=== PATIENT | male | born 1945 | race Caucasian/White ===

== ENCOUNTER 2017-05-12 15:35 | Inpatient (IN) | payer MEDICARE, BC ==
[~2017-05-12] VITALS: Ht 167.6 cm; Wt 82.6 kg
--- NOTE | 2017-05-12 15:38 | ERD ---
ER Documentation Chief Complaint Chief Complaint Chest pain HPI The patient is a 72-year-old male, presenting to the ER because of acute chest pain. He called 911 about 20 minutes prior to arrival ER. When the EMS arrived he was diaphoretic suddenly went to V. fib. He was defibrillated multiple times, total about 5 times last 20 minutes from his house to the ER due to recurrent V Fib and V Tach. He was awake, alert when he came to the ER, diaphoretic. The history is limited due to language barrier. He had similar sx 5 years ago when he had stent PCI. He smokes Past Medical history: CAD, dyslipidemia Past surgical history: Stent PCI ROS All systems reviewed and are negative except as per history of present illness. Allergies Allergies: Coded Allergies: No Known Allergy (Unverified , 05/12/17) Physical Exam Vitals Vital Signs Date Time Temp Pulse Resp B/P Pulse Ox O2 Delivery O2 Flow Rate FiO2 05/12/17 17:45 Nasal Cannula 3.0 05/12/17 15:44 Nasal Cannula 2 05/12/17 15:42 97.9 89 17 130/101 96 Physical Exam Const: No acute distress.Diaphoretic Head: Atraumatic. Eyes: Normal Conjunctiva. ENT: Normal External Ears, Nose and Mouth. Neck: Full range of motion. No meningismus. Resp: Clear to auscultation bilaterally. Cardio: Regular rate and rhythm. Abd: Soft, non distended, normal bowel sounds, non tender. Skin: No petechiae or rashes. Back: No midline or flank tenderness. Ext: No cyanosis, or edema. Neur: Awake and alert. No focal deficit Psych: Normal Mood and Affect. Result Diagram: 05/12/17 1545 05/12/17 1545 Results 24 hrs Laboratory Tests Test 05/12/17 15:45 White Blood Count 6.210^3/ul Red Blood Count 2.8510^6/ul Hemoglobin 8.6g/dl Hematocrit 26.8% Mean Corpuscular Volume 94.0fl Mean Corpuscular Hemoglobin 30.2pg Mean Corpuscular Hemoglobin Concent 32.1g/dl Red Cell Distribution Width 13.2% Platelet Count 59384^3/UL Mean Platelet Volume 10.5fl Neutrophils % 52.5% Lymphocytes % 36.4% Monocytes % 8.9% Eosinophils % 1.1% Basophils % 0.5% Nucleated Red Blood Cells % 0.0/100WBC Neutrophils # 3.310^3/ul Lymphocytes # 2.310^3/ul Monocytes # 0.610^3/ul Eosinophils # 0.110^3/ul Basophils # 0.010^3/ul Nucleated Red Blood Cells # 0.010^3/ul Prothrombin Time 17.6Sec Prothrombin Time Ratio 1.4 INR International Normalized Ratio 1.44 Activated Partial Thromboplast Time 23.0Sec Sodium Level 149mmol/L Potassium Level 2.0mmol/L Chloride Level 126mmol/L Carbon Dioxide Level 13mmol/L Anion Gap 12 Blood Urea Nitrogen 12mg/dl Creatinine 0.82mg/dl Glucose Level 100mg/dl Calcium Level 5.0mg/dl Magnesium Level 1.1mg/dl Troponin I < 0.012ng/ml Current Medications Medications (Trade) Dose Ordered Sig/Lima Route PRN Reason Start Time Stop Time Status Last Admin Dose Admin Amiodarone HCl 100 ml @ 600 mls/hr ONCE ONCE IV 05/12/17 16:00 05/12/17 16:09 DC 05/12/17 16:14 Amiodarone HCl/ Dextrose (Cordarone Iv/ D5W) 500 ml @ 0 mls/hr Q0M IV 05/12/17 16:00 05/13/17 15:59 05/12/17 16:14 Aspirin (Aspirin) 324 mg ONCE ONCE PO 05/12/17 16:00 05/12/17 16:01 DC 05/12/17 16:14 Heparin Sodium (Porcine) (Heparin (5000 Units/0.5 ml)) 5,000 unit ONCE ONCE IV 05/12/17 16:00 05/12/17 16:01 DC 05/12/17 16:14 Heparin Sodium (Porcine) (Heparin (1000 Units/ml)) 10,000 unit STK-MED ONCE .ROUTE 05/12/17 15:47 05/12/17 15:48 DC Heparin Sodium (Porcine) (Heparin (1000 Units/ml)) 10,000 unit STK-MED ONCE .ROUTE 05/12/17 16:17 05/12/17 16:18 DC Lidocaine (Xylocaine 1% (Mdv) 20 ml) 20 ml STK-MED ONCE .ROUTE 05/12/17 16:17 05/12/17 16:18 DC Iodixanol 100 ml 100 ml STK-MED ONCE .ROUTE 05/12/17 16:17 05/12/17 16:18 DC Heparin Sodium/ Sodium Chloride (Heparin 1000 Units/NS (A-Line)) 1,000 ml @ ud STK-MED ONCE .ROUTE 05/12/17 16:17 05/12/17 16:18 DC Verapamil HCl (Verapamil) 5 mg STK-MED ONCE .ROUTE 05/12/17 16:17 05/12/17 16:18 DC Nitroglycerin (Nitroglycerin (Intracoronary)) 1,000 mcg STK-MED ONCE .ROUTE 05/12/17 16:17 05/12/17 16:18 DC Fentanyl (Sublimaze) 100 mcg STK-MED ONCE .ROUTE 05/12/17 16:20 05/12/17 16:21 DC Midazolam HCl (Versed) 2 mg STK-MED ONCE .ROUTE 05/12/17 16:20 05/12/17 16:21 DC Ondansetron HCl 4 mg 4 mg STK-MED ONCE .ROUTE 05/12/17 16:25 05/12/17 16:26 DC Potassium Chloride (KCl 40 MEQ/250 ML NS) 250 ml @ 62.5 mls/hr ONCE ONCE IVPB 05/12/17 16:30 05/12/17 20:29 05/12/17 18:11 Heparin Sodium (Porcine) (Heparin (1000 Units/ml)) 10,000 unit STK-MED ONCE .ROUTE 05/12/17 16:40 05/12/17 16:41 DC Calcium Chloride 1000 mg 1,000 mg STK-MED ONCE .ROUTE 05/12/17 16:40 05/12/17 16:41 DC Potassium Chloride 100 ml @ ud STK-MED ONCE .ROUTE 05/12/17 16:40 05/12/17 16:41 DC Magnesium Sulfate (Magnesium Sulfate 2 Gm/50 ml) 50 ml @ ud STK-MED ONCE .ROUTE 05/12/17 16:40 05/12/17 16:41 DC Iodixanol (Visipaque Locm) 100 ml STK-MED ONCE .ROUTE 05/12/17 16:40 05/12/17 16:41 DC Iodixanol (Visipaque Locm) 100 ml STK-MED ONCE .ROUTE 05/12/17 16:52 05/12/17 16:53 DC Ticagrelor (Brilinta) 90 mg STK-MED ONCE .ROUTE 05/12/17 17:17 05/12/17 17:18 DC Miscellaneous Information (* Miscellaneous Pharmacy Order) Hold all Metformin ... ONCE ONCE XX 05/12/17 17:30 05/12/17 17:31 DC Lisinopril (Zestril) 10 mg DAILY PO 05/12/17 17:30 05/12/17 18:52 Acetaminophen (Tylenol Tab) 650 mg Q4H PRN PO NON-CARDIAC PAIN LEVEL 1-3 05/12/17 17:30 Oxycodone/ Acetaminophen (Percocet (5/ 325)) 1 tab Q4H PRN PO REPORTED NON-CARDIAC PAIN 4-7 05/12/17 17:30 05/12/17 18:39 Zolpidem Tartrate (Ambien) 5 mg HS MAY REPEAT X 1 PRN PO INSOMNIA 05/12/17 17:30 Al Hydrox/Mg Hydrox/Simethicone (Mag-Al Plus) 30 ml Q4H PRN PO GASTROINTESTINAL UPSET 05/12/17 17:30 Ondansetron HCl (Zofran Inj) 4 mg Q4H PRN IV NAUSEA AND/OR VOMITING 05/12/17 17:30 Procedures/MDM All Labs and chest x-ray are pending EKG: Read by emergency physician Rate/Rhythm: Normal Sinus Rhythm 89 beats/min QRS, ST, T-waves: No PVC, ST elevation anteriorly, acute anterior NV Impression: Abnormal EKG MEDICAL MAKING DECISION: Upon arrival to the ER, I reviewed the ER EKG. code STEMI was immediately activated. He was treated with amiodarone 150 mg IV bolus then added on amiodarone drip 1 mg/min due to recent V. fib and V. tach, ASA 325 mg po and Heparin 5,000 unit IV for acute STEMI. The differential diagnoses considered include but are not limited to acute coronary syndrome, acute myocardial infarction, pericarditis, pulmonary embolism , aortic dissection, pneumonia, pleural effusion, pneumothorax, GERD, chest wall pain. I did inform Dr Lyons of low potassium while the pt was in the [facility] Floor [employer] Consultation: I discussed the patient with the on-call patient appointment coordinator Dr. Lyons at 3:40 am, has made aware of the patient condition and the pending labs and chest x-ray. She would come to the ER immediately to take the patient to cardiac Hardwood Floor Installer for emergent intervention Critical Care: Time: 35 minutes excluding all billable procedures. Treatments/Evaluations: Close monitoring and treatment of unstable vital signs, cardiorespiratory, and neurologic status, while maintaining tight balance of fluid, respiratory, and cardiac interventions. Departure Diagnosis: Primary Impression: STEMI (ST elevation myocardial infarction) Condition: Critical Comments I discussed the findings with the patient. I discussed the patient with the on- call hospitalist Dr. Canada who was made aware of the lab, the treatment, the patient condition. The patient is admitted to ICU after Cath at 4:25 pm Disclaimer: Inadvertent spelling and grammatical errors are likely due to EHR/ dictation software use and do not reflect on the overall quality of patient care. Also, please note that the electronic time recorded on this note does not necessarily reflect the actual time of the patient encounter. JUDY STROUD MD May 12, 2017 15:38
[2017-05-12] MEDS ORDERED: HEPARIN 1000 UNITS/ML 10 ML INJ ONE ×3 (15:47→16:40)
[2017-05-12 15:52] LABS: BASOPHILS % 0.5 % (0.0-2.0); EOSINOPHILS # 0.1 10^3/ul (0.0-0.5); EOSINOPHILS % 1.1 % (0.0-7.0); HEMATOCRIT 26.8 % (42.0-52.0); HEMOGLOBIN 8.6 g/dl (14.0-18.0); LYMPHOCYTES # 2.3 10^3/ul (0.8-2.9); LYMPHOCYTES % 36.4 % (15.0-51.0); MEAN CORPUSCULAR HEMOGLOBIN 30.2 pg (29.0-33.0); MEAN CORPUSCULAR HGB CONC 32.1 g/dl (32.0-37.0); MEAN PLATELET VOLUME 10.5 fl (7.4-10.4); MONOCYTE # 0.6 10^3/ul (0.3-0.9); MONOCYTES % 8.9 % (0.0-11.0); NEUTROPHIL # 3.3 10^3/ul (1.6-7.5); NEUTROPHILS % 52.5 % (39.0-77.0); PLATELET COUNT 182 10^3/UL (140-415); RED BLOOD COUNT 2.85 10^6/ul (4.70-6.10); RED CELL DISTRIBUTION WIDTH 13.2 % (11.5-14.5); WHITE BLOOD COUNT 6.2 10^3/ul (4.8-10.8)
[2017-05-12] MEDS ORDERED: AMIODARONE 150MG/D5W BOLUS 100 ML IV ONE (16:00)
[2017-05-12] MEDS ORDERED: HEPARIN 5,000 UNIT/0.5 ML VIAL IV ONE (16:00)
[2017-05-12] MEDS ORDERED: ASPIRIN 81 MG TAB PO ONE (16:00)
[2017-05-12] MEDS ORDERED: AMIODARONE 900 MG in DEXTROSE 5% 482 ML IV SCH (16:00)
[2017-05-12 16:14] LABS: INR 1.44; PROTIME 17.6 Sec (12.2-14.2); PT RATIO 1.4
[2017-05-12 16:17] LABS: ANION GAP 12 (8-16); BLOOD UREA NITROGEN 12 mg/dl (7-20); CARBON DIOXIDE 13 mmol/L (21-31); CREATININE 0.82 mg/dl (0.61-1.24); GLUCOSE 100 mg/dl (70-220); MAGNESIUM 1.1 mg/dl (1.7-2.5); SODIUM 149 mmol/L (135-144)
[2017-05-12] MEDS ORDERED: LIDOCAINE 1% (MDV) 20 ML INJ ONE (16:17)
[2017-05-12] MEDS ORDERED: VERAPAMIL 5 MG INJ ONE (16:17)
[2017-05-12] MEDS ORDERED: HEPARIN 1000 UNITS/NS (A-LINE) 1,000 ML ONE (16:17)
[2017-05-12] MEDS ORDERED: IODIXANOL LOCM 100 ML BTL ONE ×3 (16:17→16:52)
[2017-05-12] MEDS ORDERED: NITROGLYCERIN (IC) 100 MCG/ML INJ ONE (16:17)
--- NOTE | 2017-05-12 16:18 | RADRPT ---
PROCEDURE: XR Chest. CLINICAL INDICATION: Chest pain TECHNIQUE: Single frontal view of the chest was obtained COMPARISON: None FINDINGS: The heart is enlarged. The thoracic aorta is calcified. There are mild right lower lobe atelectatic changes. The lungs are otherwise clear. There is no pleural effusion or pneumothorax. RPTAT: AA IMPRESSION: Mild cardiomegaly. Calcified aorta consistent with atherosclerotic disease. Mild right lower lobe atelectatic changes. .Calin Guadarrama MD, MD Date Time Electronically viewed and signed by .Calin Guadarrama MD, on 05/12/2017 16:18 .S/
[2017-05-12] MEDS ORDERED: FENTAnyl 50 MCG/ML VIAL ONE (16:20)
[2017-05-12] MEDS ORDERED: MIDAZOLAM 1 MG/ML 2 ML INJ ONE (16:20)
[2017-05-12 16:23] LABS: CHLORIDE 126 mmol/L (97-110)
[2017-05-12] MEDS ORDERED: ONDANSETRON 4 MG INJ ONE (16:25)
[2017-05-12] MEDS ORDERED: POTASSIUM CHLORIDE 250 ML IVPB ONE (16:30)
[2017-05-12 16:31] LABS: TROPONIN-I < 0.012 ng/ml (0.00-0.12)
[2017-05-12] MEDS ORDERED: CA CHLORIDE 10% 10 ML SYRINGE ONE (16:40)
[2017-05-12] MEDS ORDERED: POTASSIUM CHLORIDE 100 ML ONE (16:40)
[2017-05-12] MEDS ORDERED: MAGNESIUM SULFATE 2 GM/50 ML 50 ML ONE (16:40)
[2017-05-12] MEDS ORDERED: TICAGRELOR 90 MG TABLET ONE (17:17)
[2017-05-12] MEDS ORDERED: ACETAMINOPHEN 325 MG TAB PO PRN (17:30)
[2017-05-12] MEDS ORDERED: AL HYDROX/MG HYDROX/SIMETH 30 ML CUP PO PRN (17:30)
[2017-05-12] MEDS ORDERED: OXYCODONE/ACETAMINOPHEN (5/325) TAB PO PRN (17:30)
[2017-05-12] MEDS ORDERED: ONDANSETRON 4 MG INJ IV PRN ×2 (17:30→18:30)
[2017-05-12] MEDS ORDERED: ZOLPIDEM 5 MG TAB PO PRN (17:30)
--- NOTE | 2017-05-12 17:38 | CONS ---
Date/Time of Note Date/Time of Note DATE: 05/12/17 TIME: 17:29 Assessment/Plan Assessment/Plan Chief Complaint/Hosp Course 72 yo with anterior wall STEMI, underwent PCI with JAC to the prox LAD Problems: Additional Assessment/Plan STEMI anterior wall Hypokalemia and hypocalcemia tobacco abuse ischemic cardiomyopathy Recc: Asa/Brilinta/Atorvastatin/metoprolol/lisinopril Repletion of electrolytes Tob cessation urged Echo in AM Case d/w Dr. Enriquez who is with patient's primary bag machine operator's group, and will assume care tomorrow. Consultation Date/Type/Reason Admit Date/Time Date of Consultation: May 12, 2017 Reason for Consultation STEMI Referring Provider: JUDY STROUD MD Hx of Present Illness 72 yo with h/o cad anterior stemi 2011 with jac to mid lad, presents with chest pain that started a few hours prior to arrival. Pt had VT requiring shock by EMS x5. Patient started on amiodarone. EKG demonstrates peaked Ts and ST elevation in anterior leads with reciprocal depression and patient taken emergently to the boat laborer, where he underwent PCI of severe proximal LAD lesion. LVEF about 35-40% on LV gram. Subjective hx not possible: pt critical Past Medical History Medical History: angina, coronary artery disease Past Surgical History Past Surgical Hx: angioplasty Family History Significant Family History: no pertinent family hx Social History Smoking Status: Current every day smoker Exam/Review of Systems Vital Signs Vitals Vital Signs Date Time Temp Pulse Resp B/P Pulse Ox O2 Delivery O2 Flow Rate FiO2 05/12/17 15:44 Nasal Cannula 2 05/12/17 15:42 97.9 89 17 130/101 96 Exam Constitutional: alert, oriented, well developed Psych: nl mood/affect, no complaints Head: atraumatic, normocephalic Eyes: EOMI, PERRL, nl conjunctiva, nl lids, nl sclera ENMT: nl external ears & nose, nl lips & teeth, nl nasal mucosa & septum Neck: No bruits, No jvd Respiratory: clear to auscultation, normal air movement Cardiovascular: nl pulses, regular rate and rhythm Gastrointestinal: nl liver, spleen, soft Musculoskeletal: nl extremities to inspection Extremities: normal pulses Neurological: nl mental status, nl speech Skin: nl turgor, No rash or lesions Results Result Diagram: 05/12/17 1545 05/12/17 1545 Results 24 hrs Laboratory Tests Test 05/12/17 15:45 White Blood Count 6.2 Red Blood Count 2.85 L Hemoglobin 8.6 L Hematocrit 26.8 L Mean Corpuscular Volume 94.0 Mean Corpuscular Hemoglobin 30.2 Mean Corpuscular Hemoglobin Concent 32.1 Red Cell Distribution Width 13.2 Platelet Count 182 Mean Platelet Volume 10.5 H Neutrophils % 52.5 Lymphocytes % 36.4 Monocytes % 8.9 Eosinophils % 1.1 Basophils % 0.5 Nucleated Red Blood Cells % 0.0 Neutrophils # 3.3 Lymphocytes # 2.3 Monocytes # 0.6 Eosinophils # 0.1 Basophils # 0.0 Nucleated Red Blood Cells # 0.0 Prothrombin Time 17.6 H Prothrombin Time Ratio 1.4 INR International Normalized Ratio 1.44 Activated Partial Thromboplast Time 23.0 L Sodium Level 149 H Potassium Level 2.0 *L Chloride Level 126 H Carbon Dioxide Level 13 L Anion Gap 12 Blood Urea Nitrogen 12 Creatinine 0.82 Glucose Level 100 Calcium Level 5.0 *L Magnesium Level 1.1 L Troponin I < 0.012 Medications Medications Current Medications Amiodarone HCl 900 mg/Dextrose 500 ml @ 0 mls/hr Q0M IV Last administered on t 16:14; Admin Dose 1 MLS/HR; Start 05/12/17 at 16:00; Stop 05/13/17 at 15:59 Potassium Chloride (KCl 40 MEQ/250 ML NS) 250 ml @ 62.5 mls/hr ONCE ONCE IVPB ; Start 05/12/17 at 16:30; Stop 05/12/17 at 20:29 ISAIAH DUMAS May 12, 2017 17:38
--- NOTE | 2017-05-12 17:53 | OPR ---
Date/Time of Note Date/Time of Note DATE: 05/12/17 TIME: 17:39 Operative Report Procedure Date: May 12, 2017 Preoperative Diagnosis STEMI anterior wall Postoperative Diagnosis STEMI anterior wall, ischemic cardiomyopathy Operation/Procedure Performed coronary angiogram, left ventriculography, percutaneous coronary intervention of the proximal LAD Surgeon see signature line Weaving Instructor na Anesthesia Type: moderate sedation Estimated Blood Loss: 100 - 150 ml's Transfusion none Specimen none Grafts/Implants Synergy 3.5x12 mm stent to the prox LAD Tubes/Drains none Complications none Pt Condition Post Procedure: stable Disposition: other (icu) Indications STEMI and VT in the field Procedure Description Procedure described to the patient, including risks and benefits. He agreed to proceed. Pt received versed and fentanyl for sedation. He received asa and 5000 mg iv heparin prior to the procedure. Radial access obtained using modified seldinger technique with lidocaine for local anesthesia. Patient received verapamil and ntg through the sheath. A [place] catheter was advanced to the asc thoracic aorta. Images of the RCA and LM/LAD/LCX obtained under fluoroscopy w injection of contrast. LAD was felt to be the culprit lesion. Pt received an additional 2000 u heparin , ACT checked and found to be adequate. [place] catheter replaced with a FL3.5 guide. A Luge wire was advanced past the lesion, predilated with a 2.0x12 mm ballon, stented with a 3.5x12 mm Synergy stent, and then postdilated with a 3.75x8 mm balloon up to 20 rose. There was concern that OM2 was also a culprit, a wire was passed into the vessel but could not fully advance, suggestive of a HAIRSPRING II INSPECTOR of this vessel. Pigtail catheter advanced to the LV and pressures measured and injection done. Findings: LM normal LAD 95% proximal hazy lesion, med 2 flow distal to lesion, post procedure stenosis 0%, vessel diffusely diseased LCX small vessel, OM2 chronically occluded RCA large dominant diffusely diseased LV EF 35-40% with global hypokinesis ISAIAH DUMAS May 12, 2017 17:53
[2017-05-12 18:00] VITALS: BP 163/89; PULSE 74; RESP 15
[2017-05-12] MEDS ORDERED: POTASSIUM CHLORIDE (SR) 20 MEQ TAB PO STA (18:04)
[2017-05-12 18:09] VITALS: Ht 167.6 cm; Wt 82.6 kg
--- NOTE | 2017-05-12 18:15 | HP ---
Date/Time of Note Date/Time of Note DATE: 05/12/17 TIME: 18:15 Assessment/Plan VTE Prophylaxis VTE Prophylaxis Intervention: heparin Lines/Catheters IV Catheter Type (from Nrsg): Saline Lock Assessment/Plan Assessment/Plan 1. Acute STEMI s/p PCI to proximal LAD - Cardiology on board and recommendations appreciated - ECHO ordered - Nitro and Morphine for chest pain - continue trending troponins - Lipid panel ordered 2. c/o CAD with PCI in 2011 - continue current medications 3. Electrolyte abnormalities - Will replace but if no initial improvement, will consult Nephrology for further assistances 4. Anemia - Iron studies ordered - FOBT to rule out GI bleed 7. Hypocalcemia - will order ionized Ca and PTH - Hypomagnesemia most likely contributing to low Ca levels 8. DVT ppx - SCDs 9. GI ppx - PPI 10. Diet - Cardiac 11. Code status - Full Code 12. Disposition - Admit to ICU for close monitoring HPI/ROS Admit Date/Time Admit Date/Time 05/12/17 Hx of Present Illness 72 yo M with PMH ND in 2011 presented to ED after complaining of chest pain and shortness of breath that occurred hours prior to arrival. EMS found him in VTach and shocked him five times back into normal rhythm. Patient remembers event and denies any LOC. Patient was started on amiodarone. EKG performed showed peaked T waves and ST elevation in anterior leads. Patient was emergently taken to clinical lab specialist and PCI was performed. Stent placed in proximal LAD secondary to severe lesion. LV gram showed LVEF of 35-40%. Patient currently in ICU and complaining of moderate chest pain with shortness of breath but states is significantly better since arrival. Admits to dizziness but denies any LOC, nausea, vomiting, abdominal issues, constipation or diarrhea. Patient states he was last seen by his Lithographic Photographer Apprentice 4 months ago and was told everything was okay. ROS All 12 systems reviewed and pertinent positives as per HPI. All other negative Constitutional: No diaphoresis, No disoriented, No nausea Eyes: no complaints ENT: no complaints, No congestion, No discharge Respiratory: shortness of breath, No cough, No wheezing Cardiovascular: chest pain, No edema, No lightheadedness, No palpitations Gastrointestinal: No constipation, No nausea, No pain, No vomiting Genitourinary: no complaints Musculoskeletal: no complaints Skin: no complaints, No laceration, No rash Neurologic: no complaints Endocrine: no complaints Lymphatic: no complaints Psychological: nl mood/affect, no complaints Immunologic: no complaints PMH/Family/Social Past Medical History Medical History: angina, coronary artery disease Past Surgical History Past Surgical Hx: angioplasty Family History Significant Family History: no pertinent family hx Social History Alcohol Use: none Smoking Status: Current every day smoker Drug Use: none Exam/Review of Systems Vital Signs Vitals Vital Signs Date Time Temp Pulse Resp B/P Pulse Ox O2 Delivery O2 Flow Rate FiO2 05/12/17 15:44 Nasal Cannula 2 05/12/17 15:42 97.9 89 17 130/101 96 Exam Constitutional: alert, oriented, No distress Psych: nl mood/affect Head: atraumatic, normocephalic Eyes: EOMI, PERRL ENMT: mucosa pink and moist Neck: non-tender, supple Respiratory: clear to auscultation, No crackles/rales, No diminished breath sounds, No wheezing Cardiovascular: nl pulses, regular rate and rhythm, No edema, No systolic murmur Gastrointestinal: non-tender, soft, No distended, No rebound or guarding Musculoskeletal: nl extremities to inspection Extremities: normal pulses, other (band in place right wrist) Neurological: AWS ARCHITECT II-XII intact, nl mental status, nl speech Skin: nl turgor Lymph: nl lymph nodes Labs Result Diagram: 05/12/17 1545 05/12/17 1545 Medications Medications Home medications reviewed Current Medications Amiodarone HCl 900 mg/Dextrose 500 ml @ 0 mls/hr Q0M IV Last administered on t 16:14; Admin Dose 1 MLS/HR; Start 05/12/17 at 16:00; Stop 05/13/17 at 15:59 Potassium Chloride (KCl 40 MEQ/250 ML NS) 250 ml @ 62.5 mls/hr ONCE ONCE IVPB ; Start 05/12/17 at 16:30; Stop 05/12/17 at 20:29 Aspirin (Halfprin) 81 mg DAILY PO ; Start 05/13/17 at 09:00 Ticagrelor (Brilinta) 90 mg BID PO ; Start 05/12/17 at 21:00 Metoprolol Tartrate (Lopressor) 25 mg BID PO ; Start 05/12/17 at 21:00 Lisinopril (Zestril) 10 mg DAILY PO ; Start 05/12/17 at 17:30 Acetaminophen (Tylenol Tab) 650 mg Q4H PRN PO NON-CARDIAC PAIN LEVEL 1-3; Start 05/12/17 at 17:30 Oxycodone/ Acetaminophen (Percocet (5/ 325)) 1 tab Q4H PRN PO REPORTED NON- CARDIAC PAIN 4-7; Start 05/12/17 at 17:30 Al Hydrox/Mg Hydrox/Simethicone (Mag-Al Plus) 30 ml Q4H PRN PO GASTROINTESTINAL UPSET; Start 05/12/17 at 17:30 Ondansetron HCl (Zofran Inj) 4 mg Q4H PRN IV NAUSEA AND/OR VOMITING; Start at 17:30 Atorvastatin Calcium (Lipitor) 80 mg DAILY@21 PO ; Start 05/12/17 at 21:00 Procedures Procedures PROCEDURE: XR Chest. CLINICAL INDICATION: Chest pain TECHNIQUE: Single frontal view of the chest was obtained COMPARISON: None FINDINGS: The heart is enlarged. The thoracic aorta is calcified. There are mild right lower lobe atelectatic changes. The lungs are otherwise clear. There is no pleural effusion or pneumothorax. RPTAT: AA IMPRESSION: Mild cardiomegaly. Calcified aorta consistent with atherosclerotic disease. Mild right lower lobe atelectatic changes. JAGRUTI ZAMAN MD May 12, 2017 18:15
[2017-05-12] MEDS ORDERED: DOCUSATE SODIUM 100 MG CAP PO PRN (18:30)
[2017-05-12] MEDS: POTASSIUM CHLORIDE 250 ML IVPB SCH ×2 (18:30→22:05)
[2017-05-12] MEDS ORDERED: ACETAMINOPHEN 650MG/20.3ML CUP PO PRN (18:30)
[2017-05-12] MEDS ORDERED: morphine 2 MG INJ IV PRN (18:30)
[2017-05-12] MEDS ORDERED: MAGNESIUM HYDROXIDE 30ML CUP PO PRN (18:30)
[2017-05-12] MEDS ORDERED: MAGNESIUM SULFATE 6 GM in DEXTROSE 5% 100 ML IVPB ONE (18:30)
[2017-05-12] MEDS ORDERED: POTASSIUM CHLORIDE 50 ML IVPB PRN (18:30)
[2017-05-12] MEDS ORDERED: NITROGLYCERIN (SL) 0.4 MG TAB SL PRN (18:30)
[2017-05-12] MEDS: LISINOPRIL 10 MG TAB PO SCH (18:52)
[2017-05-12 19:00] VITALS: BP 156/85; PULSE 65; RESP 21
[2017-05-12] MEDS ORDERED: CALCIUM CARBONATE 500 MG CHEW TAB PO ONE (19:00)
[2017-05-12 20:00] VITALS: BP 148/80; PULSE 64; RESP 21
[2017-05-12 20:06] LABS: IRON 100 ug/dl (35-150)
[2017-05-12 20:16] LABS: TOTAL IRON BINDING CAPACITY 456 ug/dl (241-421)
[2017-05-12] MEDS: METOPROLOL 25 MG TAB PO SCH (20:35)
[2017-05-12] MEDS: ATORVASTATIN 80 MG TAB PO SCH (20:35)
[2017-05-12] MEDS: TICAGRELOR 90 MG TABLET PO SCH (20:36)
[2017-05-12 21:00] VITALS: BP 156/92; PULSE 72; RESP 23
[2017-05-12 22:00] VITALS: BP 137/73; PULSE 63; RESP 22
[2017-05-12] MEDS ORDERED: HEPARIN 5,000 UNIT/0.5 ML VIAL SC SCH (22:00)
[2017-05-12 22:39] LABS: TROPONIN-I 4.45 ng/ml (0.00-0.12)
[2017-05-12 23:00] VITALS: BP 136/72; PULSE 67; RESP 20
[2017-05-13] VITALS (23 sets, daily range): BP systolic 118–150; BP diastolic 55–75; PULSE 56–76; RESP 11–26
[2017-05-13 05:54] LABS: BASOPHILS % 0.3 % (0.0-2.0); EOSINOPHILS # 0.1 10^3/ul (0.0-0.5); EOSINOPHILS % 0.4 % (0.0-7.0); HEMATOCRIT 39.7 % (42.0-52.0); HEMOGLOBIN 12.7 g/dl (14.0-18.0); LYMPHOCYTES # 1.7 10^3/ul (0.8-2.9); LYMPHOCYTES % 12.6 % (15.0-51.0); MEAN CORPUSCULAR VOLUME 93.6 fl (82.0-101.0); MEAN PLATELET VOLUME 11.1 fl (7.4-10.4); MONOCYTE # 1.1 10^3/ul (0.3-0.9); MONOCYTES % 7.9 % (0.0-11.0); NEUTROPHIL # 10.9 10^3/ul (1.6-7.5); NEUTROPHILS % 78.4 % (39.0-77.0); PLATELET COUNT 266 10^3/UL (140-415); RED BLOOD COUNT 4.24 10^6/ul (4.70-6.10); RED CELL DISTRIBUTION WIDTH 13.5 % (11.5-14.5); WHITE BLOOD COUNT 13.9 10^3/ul (4.8-10.8)
[2017-05-13] MEDS: PANTOPRAZOLE (EC) 40 MG TAB PO SCH (06:08)
[2017-05-13 06:32] LABS: ALBUMIN 3.6 g/dl (3.3-4.9); CALCIUM 9.4 mg/dl (8.4-10.2); CREATININE 1.23 mg/dl (0.61-1.24); MAGNESIUM 2.4 mg/dl (1.7-2.5); PHOSPHORUS 3.4 mg/dl (2.5-4.9); POTASSIUM 4.6 mmol/L (3.5-5.1)
[2017-05-13 06:36] LABS: CK-MB 89.3 ng/ml (0.0-2.4); TROPONIN-I 13.8 ng/ml (0.00-0.12)
[2017-05-13 07:47] LABS: CHOL/HDL RATIO 3.1 RATIO
[2017-05-13] MEDS: LISINOPRIL 10 MG TAB PO SCH (08:09)
[2017-05-13] MEDS: ASPIRIN (EC) 81 MG TAB PO SCH (08:09)
[2017-05-13] MEDS: METOPROLOL 25 MG TAB PO SCH ×3 (08:10→20:45)
[2017-05-13] MEDS: TICAGRELOR 90 MG TABLET PO SCH ×2 (08:11→20:43)
--- NOTE | 2017-05-13 08:46 | CONS ---
Date/Time of Note Date/Time of Note DATE: 05/13/17 TIME: 08:42 Assessment/Plan Assessment/Plan Chief Complaint/Hosp Course 1) acute anterior wall STEMI s/p PCI of proximal LAD with PRAFUL x 1 2) Ischemic cardiomyopathy- check echo for LV function, will need close outpt f/ u 3) Smoking- d/w pt, recommend smoking cessation 4) Hypokalemia- unclear etiology- replaced, watch k/mag closely 5) ischemic VT- s/p shock x 5 by EMS per report. cont tele monitoring and electrolyte supplementation. given AMI, would not recommend ICD at this time. however, will need to check lvef Recc: cont asa 81 mg daily cont ticagelor 90mg po bid cont atorvastatin cont bb/lisinopril Repletion of electrolytes Tob cessation urged Echo pending ok to transfer to tele floor, cont montioring for 24 hrs, if stable consider d/ c tomorrow Problems: Consultation Date/Type/Reason Admit Date/Time 05/12/17 Eyes: no complaints ENT: no complaints Respiratory: shortness of breath Cardiovascular: chest pain Gastrointestinal: No constipation, No nausea, No pain, No vomiting Genitourinary: no complaints Musculoskeletal: no complaints Skin: no complaints Neurologic: no complaints Lymphatic: no complaints Psychological: nl mood/affect Immunologic: no complaints Past Medical History Medical History: angina, coronary artery disease Past Surgical History Past Surgical Hx: angioplasty Social History Alcohol Use: none Smoking Status: Former smoker Drug Use: none Exam/Review of Systems Vital Signs Vitals Vital Signs Date Time Temp Pulse Resp B/P Pulse Ox O2 Delivery O2 Flow Rate FiO2 05/13/17 07:20 98.0 24 130/58 94 Room Air 05/13/17 07:00 61 05/13/17 04:00 3.0 Intake and Output 05/12/17 05/12/17 05/13/17 15:00 23:00 07:00 Intake Total 532.5 ml 50 ml Output Total 30 ml 800 ml Balance 502.5 ml -750 ml Results Result Diagram: 05/13/17 0451 05/13/17 0452 Results 24 hrs Laboratory Tests Test 05/12/17 15:45 05/12/17 19:28 05/12/17 21:42 05/13/17 04:51 White Blood Count 6.2 13.9 #H Red Blood Count 2.85 L 4.24 #L Hemoglobin 8.6 L 12.7 #L Hematocrit 26.8 L 39.7 #L Mean Corpuscular Volume 94.0 93.6 Mean Corpuscular Hemoglobin 30.2 30.0 Mean Corpuscular Hemoglobin Concent 32.1 32.0 Red Cell Distribution Width 13.2 13.5 Platelet Count 182 266 # Mean Platelet Volume 10.5 H 11.1 H Neutrophils % 52.5 78.4 H Lymphocytes % 36.4 12.6 L Monocytes % 8.9 7.9 Eosinophils % 1.1 0.4 Basophils % 0.5 0.3 Nucleated Red Blood Cells % 0.0 0.0 Neutrophils # 3.3 10.9 H Lymphocytes # 2.3 1.7 Monocytes # 0.6 1.1 H Eosinophils # 0.1 0.1 Basophils # 0.0 0.0 Nucleated Red Blood Cells # 0.0 0.0 Prothrombin Time 17.6 H Prothrombin Time Ratio 1.4 INR International Normalized Ratio 1.44 Activated Partial Thromboplast Time 23.0 L Sodium Level 149 H Potassium Level 2.0 *L Chloride Level 126 H Carbon Dioxide Level 13 L Anion Gap 12 Blood Urea Nitrogen 12 Creatinine 0.82 Glucose Level 100 Calcium Level 5.0 *L Magnesium Level 1.1 L Troponin I < 0.012 4.450 *H 13.800 *H Ionized Calcium (Measured) 1.3 Iron Level 100 Total Iron Binding Capacity 456 H Percent Iron Saturation 22 Vitamin D 1,25-Dihydroxy 62.0 Creatine Kinase 1348 H 6152 #H Creatine Kinase Index 3.4 1.5 Creatinine Kinase MB (Mass) 46.00 H 89.30 H Triglycerides Level 102 Cholesterol Level 129 LDL Cholesterol, Calculated 68 HDL Cholesterol 41 Cholesterol/HDL Ratio 3.1 Test 05/13/17 04:52 Sodium Level 141 Potassium Level 4.6 # Chloride Level 108 # Carbon Dioxide Level 26 # Anion Gap 12 Blood Urea Nitrogen 21 H Creatinine 1.23 Glucose Level 101 Calcium Level 9.4 # Phosphorus Level 3.4 Magnesium Level 2.4 # Albumin 3.6 Medications Medications Current Medications Aspirin (Halfprin) 81 mg DAILY PO Last administered on 05/13/17 08:09; Admin Dose 81 MG; Start 05/13/17 at 09:00 Ticagrelor (Brilinta) 90 mg BID PO Last administered on 05/13/17 08:11; Admin Dose 90 MG; Start 05/12/17 at 21:00 Metoprolol Tartrate (Lopressor) 25 mg BID PO Last administered on 05/12/17 20 :35; Admin Dose 25 MG; Start 05/12/17 at 21:00 Lisinopril (Zestril) 10 mg DAILY PO Last administered on 05/13/17 08:09; Admin Dose 10 MG; Start 05/12/17 at 17:30 Acetaminophen (Tylenol Tab) 650 mg Q4H PRN PO NON-CARDIAC PAIN LEVEL 1-3 Last administered on 05/12/17 20:42; Admin Dose 650 MG; Start 05/12/17 at 17:30 Oxycodone/ Acetaminophen (Percocet (5/ 325)) 1 tab Q4H PRN PO REPORTED NON- CARDIAC PAIN 4-7 Last administered on 05/12/17 18:39; Admin Dose 1 TAB; Start 05/12/17 at 17:30 Al Hydrox/Mg Hydrox/Simethicone (Mag-Al Plus) 30 ml Q4H PRN PO GASTROINTESTINAL UPSET Last administered on 05/12/17 20:58; Admin Dose 30 ML; Start 05/12/17 at 17:30 Ondansetron HCl (Zofran Inj) 4 mg Q4H PRN IV NAUSEA AND/OR VOMITING Last administered on 05/12/17 22:15; Admin Dose 4 MG; Start 05/12/17 at 17:30 Atorvastatin Calcium (Lipitor) 80 mg DAILY@21 PO Last administered on 20:35; Admin Dose 80 MG; Start 05/12/17 at 21:00 Ondansetron HCl (Zofran Inj) 4 mg Q6H PRN IV NAUSEA AND/OR VOMITING; Start at 18:30 Nitroglycerin (Nitroglycerin (Sl Tab) 0.4 Mg) 1 tab Q5M PRN SL CHEST PAIN; Start 05/12/17 at 18:30 Acetaminophen (Tylenol Liquid) 650 mg Q6H PRN PO PAIN LEVEL 1-3 OR FEVER; Start 05/12/17 at 18:30 Morphine Sulfate (morphine) 2 mg Q4H PRN IV PAIN LEVEL 7-10; Start 05/12/17 at 18:30 Docusate Sodium (Colace) 100 mg Q12H PRN PO CONSTIPATION; Start 05/12/17 at 18 :30 Magnesium Hydroxide (Milk Of Mag) 30 ml DAILY PRN PO CONSTIPATION; Start 05/12 at 18:30 Pantoprazole (Protonix Tab) 40 mg DAILY@06 PO Last administered on 05/13/17t 06:08; Admin Dose 40 MG; Start 05/13/17 at 06:00 MARISSA YI May 13, 2017 08:46
--- NOTE | 2017-05-13 11:23 | PN ---
Date/Time of Note Date/Time of Note DATE: 05/13/17 TIME: 11:23 Assessment/Plan VTE Prophylaxis VTE Prophylaxis Intervention: heparin Lines/Catheters IV C[facility] Type [facility]from [facility] Saline Lock Urinary Cath still in place: No Assessment/Plan Assessment/Plan 1. Acute anterior wall STEMI s/p PCI of proximal LAD with PRAFUL x 1 - Cardiology on board and recommendations appreciated. - Repeat ECHO - Nitro and Morphine for chest pain - continue trending troponins - Lipid panel within normal limits 2. c/o CAD with PCI in 2011 - continue current medications 3. Electrolyte abnormalities- improved - will continue monitoring and replace as needed 4. Anemia- improving - Hgb improved to 12 - Iron studies within normal limits 5. Ischemic Vtach - Had 15 beats today but no ICD needed at this time 6. Disposition - Can downgrade to Telemetry >30 minutes of critical care time was spend with patient and at bedside. Subjective 24 Hr Interval Summary Free Text/Dictation Patient states he's feeling better but still has some discomfort at the sites where he was shocked. Patient denies any further chest pain or shortness of breath. Patient had a run of 15 beats of Vtach as well. No acute overnight events. Exam/Review of Systems Vital Signs Vitals Vital Signs Date Time Temp Pulse Resp B/P Pulse Ox O2 Delivery O2 Flow Rate FiO2 05/13/17 10:00 98.3 66 22 133/68 99 Nasal Cannula 05/13/17 04:00 3.0 Intake and Output 05/12/17 05/12/17 05/13/17 14:59 22:59 06:59 Intake Total 445.0 ml 137.5 ml Output Total 30 ml 800 ml Balance 415.0 ml -662.5 ml Exam General- resting comfortably in bed, no acute distress, awake and alert HEENT- EOM intact, PERRL CVS- S1, S2, RRR. no murmurs Lungs- CTA b/l. no wheezing, crackles GI- soft, NT, ND, +BS, no rebound or guarding Ext- no edema, cyanosis, or clubbing Skin- no rashes, ecchymosis Neuro- no focal deficits Results Result Diagram: 05/13/17 0451 05/13/17 0452 Results 24 hrs Laboratory Tests Test 05/12/17 15:45 05/12/17 19:28 05/12/17 21:42 05/13/17 04:51 White Blood Count 6.2 13.9 #H Red Blood Count 2.85 L 4.24 #L Hemoglobin 8.6 L 12.7 #L Hematocrit 26.8 L 39.7 #L Mean Corpuscular Volume 94.0 93.6 Mean Corpuscular Hemoglobin 30.2 30.0 Mean Corpuscular Hemoglobin Concent 32.1 32.0 Red Cell Distribution Width 13.2 13.5 Platelet Count 182 266 # Mean Platelet Volume 10.5 H 11.1 H Neutrophils % 52.5 78.4 H Lymphocytes % 36.4 12.6 L Monocytes % 8.9 7.9 Eosinophils % 1.1 0.4 Basophils % 0.5 0.3 Nucleated Red Blood Cells % 0.0 0.0 Neutrophils # 3.3 10.9 H Lymphocytes # 2.3 1.7 Monocytes # 0.6 1.1 H Eosinophils # 0.1 0.1 Basophils # 0.0 0.0 Nucleated Red Blood Cells # 0.0 0.0 Prothrombin Time 17.6 H Prothrombin Time Ratio 1.4 INR International Normalized Ratio 1.44 Activated Partial Thromboplast Time 23.0 L Sodium Level 149 H Potassium Level 2.0 *L Chloride Level 126 H Carbon Dioxide Level 13 L Anion Gap 12 Blood Urea Nitrogen 12 Creatinine 0.82 Glucose Level 100 Calcium Level 5.0 *L Magnesium Level 1.1 L Troponin I < 0.012 4.450 *H 13.800 *H Ionized Calcium (Measured) 1.3 Iron Level 100 Total Iron Binding Capacity 456 H Percent Iron Saturation 22 Vitamin D 1,25-Dihydroxy 62.0 Creatine Kinase 1348 H 6152 #H Creatine Kinase Index 3.4 1.5 Creatinine Kinase MB (Mass) 46.00 H 89.30 H Triglycerides Level 102 Cholesterol Level 129 LDL Cholesterol, Calculated 68 HDL Cholesterol 41 Cholesterol/HDL Ratio 3.1 Test 05/13/17 04:52 Sodium Level 141 Potassium Level 4.6 # Chloride Level 108 # Carbon Dioxide Level 26 # Anion Gap 12 Blood Urea Nitrogen 21 H Creatinine 1.23 Glucose Level 101 Calcium Level 9.4 # Phosphorus Level 3.4 Magnesium Level 2.4 # Albumin 3.6 Medications Medications Current Medications Aspirin (Halfprin) 81 mg DAILY PO Last administered on 05/13/17t 08:09; Admin Dose 81 MG; Start 05/13/17 at 09:00 Ticagrelor (Brilinta) 90 mg BID PO Last administered on 05/13/17 08:11; Admin Dose 90 MG; Start 05/12/17 at 21:00 Metoprolol Tartrate (Lopressor) 25 mg BID PO Last administered on 05/13/17 11 :15; Admin Dose 25 MG; Start 05/12/17 at 21:00 Lisinopril (Zestril) 10 mg DAILY PO Last administered on 05/13/17 08:09; Admin Dose 10 MG; Start 05/12/17 at 17:30 Acetaminophen (Tylenol Tab) 650 mg Q4H PRN PO NON-CARDIAC PAIN LEVEL 1-3 Last administered on 05/12/17 20:42; Admin Dose 650 MG; Start 05/12/17 at 17:30 Oxycodone/ Acetaminophen (Percocet (5/ 325)) 1 tab Q4H PRN PO REPORTED NON- CARDIAC PAIN 4-7 Last administered on 05/12/17 18:39; Admin Dose 1 TAB; Start 05/12/17 at 17:30 Al Hydrox/Mg Hydrox/Simethicone (Mag-Al Plus) 30 ml Q4H PRN PO GASTROINTESTINAL UPSET Last administered on 05/12/17 20:58; Admin Dose 30 ML; Start 05/12/17 at 17:30 Ondansetron HCl (Zofran Inj) 4 mg Q4H PRN IV NAUSEA AND/OR VOMITING Last administered on 05/12/17 22:15; Admin Dose 4 MG; Start 05/12/17 at 17:30 Atorvastatin Calcium (Lipitor) 80 mg DAILY@21 PO Last administered on 20:35; Admin Dose 80 MG; Start 05/12/17 at 21:00 Ondansetron HCl (Zofran Inj) 4 mg Q6H PRN IV NAUSEA AND/OR VOMITING; Start at 18:30 Nitroglycerin (Nitroglycerin (Sl Tab) 0.4 Mg) 1 tab Q5M PRN SL CHEST PAIN; Start 05/12/17 at 18:30 Acetaminophen (Tylenol Liquid) 650 mg Q6H PRN PO PAIN LEVEL 1-3 OR FEVER; Start 05/12/17 at 18:30 Morphine Sulfate (morphine) 2 mg Q4H PRN IV PAIN LEVEL 7-10; Start 05/12/17 at 18:30 Docusate Sodium (Colace) 100 mg Q12H PRN PO CONSTIPATION; Start 05/12/17 at 18 :30 Magnesium Hydroxide (Milk Of Mag) 30 ml DAILY PRN PO CONSTIPATION; Start 05/12 at 18:30 Pantoprazole (Protonix Tab) 40 mg DAILY@06 PO Last administered on 05/13/17t 06:08; Admin Dose 40 MG; Start 05/13/17 at 06:00 JAGRUTI ZAMAN MD May 13, 2017 11:23
[2017-05-13] MEDS ORDERED: GABA100C14 PO (11:28)
[2017-05-13] MEDS ORDERED: FOLI-49 PO (11:28)
[2017-05-13] MEDS ORDERED: ASPI81TA3 PO (11:28)
[2017-05-13] MEDS ORDERED: CYCL5TAB PO (11:28)
[2017-05-13] MEDS ORDERED: CHOL400C PO (11:28)
[2017-05-13] MEDS ORDERED: ATOR80TA75 PO (11:28)
[2017-05-13] MEDS ORDERED: FENO135C4 PO (11:28)
[2017-05-13] MEDS ORDERED: ESOM40CA PO (11:28)
[2017-05-13] MEDS ORDERED: MAGN400T27 PO (11:28)
[2017-05-13] MEDS ORDERED: CYAN1TAB47 PO (11:28)
--- NOTE | 2017-05-13 15:02 | RADRPT ---
Echocardiogram Report Patient Name: LEONARD STEIN Gender: Male Date: 1945 Study Date: 13-May-2017 Tobacco Cutter: Jelena [facility] Location: [address] Ref. Physician: ISAIAH DUMAS Quality: Adequate Procedures: Transthoracic echocardiogram with complete 2D, M-Mode, and doppler examination. Indications: STEMI. 2D/M Mode Doppler Measurement Value Normal Ranges Measurement Value Normal Ranges LVIDd 2D 4.5 3.5 - 5.6 cm AV Peak Jonas 1.6 m/sec LVIDs 2D 2.9 2.1 - 4.1 cm AV Peak PG 10.0 mmHg FS 2D 35.3 % LVOT Peak Jonas 1.3 m/sec LVPWd 2D 1.7 0.6 - 1.1 cm LVOT Peak PG 7.0 mmHg IVSd 2D 1.7 0.6 - 1.1 cm MV E Peak Jonas 0.6 m/sec IVS/LVPW 2D 1.0 MV A Peak Jonas 0.8 m/sec AoR Diam 2D 3.1 2.0 - 3.7 cm MV E/A 0.8 LA/Ao 2D 2 0 - 1 MV Decel Time 257 msec EDV 2D 93.0 cm3 MV E/A 0.8 ESV 2D 25.2 cm3 TR Peak Jonas 3.6 m/sec LA Dimen 2D 4.7 2.3 - 4.0 cm TR Peak PG 52.0 mmHg RVSP 60.0 mmHg Findings Left Ventricle: Normal left ventricular systolic function. Normal left ventricular cavity size. Moderate concentric left ventricular hypertrophy. Ejection fraction is visually estimated at 55 %. Tissue Doppler/Mitral Doppler indices are consistent with impaired relaxation (Stage I diastolic dysfunction). Right Ventricle: Normal right ventricular size. Normal right ventricular systolic function. Left Atrium: There is moderate enlargement of left atrium. Right Atrium: The right atrium is normal in size. Mitral Valve: Normal appearance and function of the mitral valve with trace physiologic regurgitation. Aortic Valve: No significant aortic stenosis or insufficiency. Aortic sclerosis without stenosis. Tricuspid Valve: Normal appearance of the tricuspid valve. Right ventricular systolic pressure is consistent with moderate pulmonary hypertension. Estimated peak PA systolic pressure 55 mmHg. There is mild to moderate tricuspid regurgitation. Pulmonic Valve: Pulmonic valve not well visualized. There is trace pulmonic regurgitation. Pericardium: Normal pericardium with no significant pericardial effusion. Aorta: Normal aortic root. IVC: Normal size and normal respiratory collapse consistent with normal right atrial pressure. Conclusions 1.Normal left ventricular systolic function. Normal left ventricular cavity size. Moderate concentric left ventricular hypertrophy. Ejection fraction is visually estimated at 55 %. Tissue Doppler/Mitral Doppler indices are consistent with impaired relaxation (Stage I diastolic dysfunction). 2.Normal right ventricular size. Normal right ventricular systolic function. 3.There is moderate enlargement of left atrium. 4.No significant aortic stenosis or insufficiency. Aortic sclerosis without stenosis. 5.Normal appearance of the tricuspid valve. Right ventricular systolic pressure is consistent with moderate pulmonary hypertension. Estimated peak PA systolic pressure 55 mmHg. There is mild to moderate tricuspid regurgitation. 6.Normal aortic root. 7.Normal size and normal respiratory collapse consistent with normal right atrial pressure. 8.No Vegetation, masses, or thrombi seen. Electronically Signed By: Lauri Enriquez 13-May-2017 15:01:14 0800 Patient Name: LEONARD STEIN Study Date: 13-May-2017 [id number]
[2017-05-13] MEDS: ATORVASTATIN 80 MG TAB PO SCH (20:44)
[2017-05-13] MEDS ORDERED: CYCLOBENZAPRINE 10 MG TAB PO SCH (21:00)
[2017-05-13] MEDS ORDERED: GABAPENTIN 100 MG CAP PO SCH (21:00)
[2017-05-14] VITALS: BP 124/67; PULSE 70; PULSE 72; RESP 23
[2017-05-14 01:00] VITALS: BP 133/68; PULSE 61; RESP 21
[2017-05-14 02:00] VITALS: PULSE 65; RESP 19
[2017-05-14 02:44] VITALS: PULSE 0
[2017-05-14 04:00] VITALS: PULSE 0
[2017-05-14] MEDS: PANTOPRAZOLE (EC) 40 MG TAB PO SCH (06:13)
[2017-05-14 06:25] LABS: BASOPHIL # 0.1 10^3/ul (0.0-0.1); BASOPHILS % 0.5 % (0.0-2.0); EOSINOPHILS # 0.2 10^3/ul (0.0-0.5); EOSINOPHILS % 1.6 % (0.0-7.0); HEMATOCRIT 40.1 % (42.0-52.0); HEMOGLOBIN 13.2 g/dl (14.0-18.0); LYMPHOCYTES # 2.3 10^3/ul (0.8-2.9); LYMPHOCYTES % 23.5 % (15.0-51.0); MEAN CORPUSCULAR HEMOGLOBIN 29.9 pg (29.0-33.0); MEAN CORPUSCULAR HGB CONC 32.9 g/dl (32.0-37.0); MEAN CORPUSCULAR VOLUME 90.7 fl (82.0-101.0); MEAN PLATELET VOLUME 10.6 fl (7.4-10.4); MONOCYTE # 0.8 10^3/ul (0.3-0.9); MONOCYTES % 8.2 % (0.0-11.0); NEUTROPHIL # 6.3 10^3/ul (1.6-7.5); NEUTROPHILS % 65.8 % (39.0-77.0); PLATELET COUNT 228 10^3/UL (140-415); RED BLOOD COUNT 4.42 10^6/ul (4.70-6.10); RED CELL DISTRIBUTION WIDTH 13.1 % (11.5-14.5); WHITE BLOOD COUNT 9.6 10^3/ul (4.8-10.8)
[2017-05-14 07:17] LABS: ALBUMIN 3.8 g/dl (3.3-4.9); CREATININE 1.28 mg/dl (0.61-1.24); MAGNESIUM 1.9 mg/dl (1.7-2.5); PHOSPHORUS 2.8 mg/dl (2.5-4.9)
[2017-05-14 08:00] VITALS: BP 114/74; PULSE 60; RESP 20
--- NOTE | 2017-05-14 08:24 | PN ---
Date/Time of Note Date/Time of Note DATE: 05/14/17 TIME: 08:23 Assessment/Plan VTE Prophylaxis VTE Prophylaxis Intervention: heparin Lines/Catheters IV Catheter Type (from Nrs): Saline Lock Urinary Cath still in place: No Assessment/Plan Assessment/Plan 1. Acute anterior wall STEMI s/p PCI of proximal LAD with PRAFUL x 1 - Cardiology on board and recommendations appreciated. Patient cleared for discharge home with close follow up. Continue current medications - Repeat ECHO showed EF 55% which is improvement from LV gram - Nitro and Morphine for chest pain - Lipid panel within normal limits 2. c/o CAD with PCI in 2011 - continue current medications 3. Electrolyte abnormalities- improved - stable. Will continue on K and Mg PO supplements per Cardiology recommendations. 4. Anemia-normalizing - Hgb improved to 13 - Iron studies within normal limits 5. Ischemic Vtach - no further episodes since yesterday while on the monitor 6. Disposition - Patient is stable for discharge home today >30 minutes of critical care time was spend with patient. Subjective 24 Hr Interval Summary Free Text/Dictation Patient doing well and states he was unable to sleep well last night since the monitors kept making noises. Denies any chest pain, shortness of breath, nausea , vomiting, dizziness, or abdominal issues. Exam/Review of Systems Vital Signs Vitals Vital Signs Date Time Temp Pulse Resp B/P Pulse Ox O2 Delivery O2 Flow Rate FiO2 05/14/17 04:00 0 05/14/17 02:00 19 94 05/14/17 01:00 133/68 Room Air 05/14/17 00:00 98.0 05/13/17 04:00 3.0 Intake and Output 05/13/17 05/13/17 05/14/17 15:00 23:00 07:00 Intake Total 60 ml 450 ml 60 ml Output Total 350 ml 50 ml Balance -290 ml 400 ml 60 ml Exam General- resting comfortably in bed, no acute distress, awake and alert HEENT- EOM intact, PERRL, neck supple and midline CVS- S1, S2, RRR. no murmurs Lungs- CTA b/l. no wheezing, crackles GI- soft, NT, ND, +BS, no rebound or guarding Ext- no edema, cyanosis, or clubbing Skin- no rashes, ecchymosis Neuro- no focal deficits Results Result Diagram: 05/14/1713 05/14/17 0613 Results 24 hrs Laboratory Tests Test 05/14/17 06:13 White Blood Count 9.6 # Red Blood Count 4.42 L Hemoglobin 13.2 L Hematocrit 40.1 L Mean Corpuscular Volume 90.7 Mean Corpuscular Hemoglobin 29.9 Mean Corpuscular Hemoglobin Concent 32.9 Red Cell Distribution Width 13.1 Platelet Count 228 Mean Platelet Volume 10.6 H Neutrophils % 65.8 Lymphocytes % 23.5 Monocytes % 8.2 Eosinophils % 1.6 Basophils % 0.5 Nucleated Red Blood Cells % 0.0 Neutrophils # 6.3 Lymphocytes # 2.3 Monocytes # 0.8 Eosinophils # 0.2 Basophils # 0.1 Nucleated Red Blood Cells # 0.0 Sodium Level 140 Potassium Level 4.0 Chloride Level 104 Carbon Dioxide Level 26 Anion Gap 14 Blood Urea Nitrogen 25 H Creatinine 1.28 H Glucose Level 101 Calcium Level 9.0 Phosphorus Level 2.8 Magnesium Level 1.9 Albumin 3.8 Medications Medications Current Medications Aspirin (Halfprin) 81 mg DAILY PO Last administered on 05/13/17 08:09; Admin Dose 81 MG; Start 05/13/17 at 09:00 Ticagrelor (Brilinta) 90 mg BID PO Last administered on 05/13/17 20:43; Admin Dose 90 MG; Start 05/12/17 at 21:00 Metoprolol Tartrate (Lopressor) 25 mg BID PO Last administered on 05/13/17 20 :45; Admin Dose 25 MG; Start 05/12/17 at 21:00 Lisinopril (Zestril) 10 mg DAILY PO Last administered on 05/13/17 08:09; Admin Dose 10 MG; Start 05/12/17 at 17:30 Acetaminophen (Tylenol Tab) 650 mg Q4H PRN PO NON-CARDIAC PAIN LEVEL 1-3 Last administered on 05/12/17 20:42; Admin Dose 650 MG; Start 05/12/17 at 17:30 Oxycodone/ Acetaminophen (Percocet (5/ 325)) 1 tab Q4H PRN PO REPORTED NON- CARDIAC PAIN 4-7 Last administered on 05/12/17 18:39; Admin Dose 1 TAB; Start 05/12/17 at 17:30 Al Hydrox/Mg Hydrox/Simethicone (Mag-Al Plus) 30 ml Q4H PRN PO GASTROINTESTINAL UPSET Last administered on 05/12/17 20:58; Admin Dose 30 ML; Start 05/12/17 at 17:30 Ondansetron HCl (Zofran Inj) 4 mg Q4H PRN IV NAUSEA AND/OR VOMITING Last administered on 05/12/17 22:15; Admin Dose 4 MG; Start 05/12/17 at 17:30 Atorvastatin Calcium (Lipitor) 80 mg DAILY@21 PO Last administered on 20:44; Admin Dose 80 MG; Start 05/12/17 at 21:00 Ondansetron HCl (Zofran Inj) 4 mg Q6H PRN IV NAUSEA AND/OR VOMITING; Start at 18:30 Nitroglycerin (Nitroglycerin (Sl Tab) 0.4 Mg) 1 tab Q5M PRN SL CHEST PAIN; Start 05/12/17 at 18:30 Acetaminophen (Tylenol Liquid) 650 mg Q6H PRN PO PAIN LEVEL 1-3 OR FEVER; Start 05/12/17 at 18:30 Morphine Sulfate (morphine) 2 mg Q4H PRN IV PAIN LEVEL 7-10; Start 05/12/17 at 18:30 Docusate Sodium (Colace) 100 mg Q12H PRN PO CONSTIPATION; Start 05/12/17 at 18 :30 Magnesium Hydroxide (Milk Of Mag) 30 ml DAILY PRN PO CONSTIPATION; Start 05/12 at 18:30 Pantoprazole (Protonix Tab) 40 mg DAILY@06 PO Last administered on 05/14/17 06:13; Admin Dose 40 MG; Start 05/13/17 at 06:00 Cyclobenzaprine HCl (Flexeril) 5 mg QHS PO Last administered on 05/13/17 20: 44; Admin Dose 5 MG; Start 05/13/17 at 21:00 Folic Acid (Folic Acid) 1 mg DAILY PO ; Start 05/14/17 at 09:00 Gabapentin (Neurontin) 200 mg QHS PO Last administered on 05/13/17 20:44; Admin Dose 200 MG; Start 05/13/17 at 21:00 Cholecalciferol (Vitamin D) 1,000 unit DAILY PO ; Start 05/14/17 at 09:00 Fenofibrate (Tricor) 145 mg DAILY PO ; Start 05/14/17 at 09:00 JAGRUTI ZAMAN MD May 14, 2017 08:24
[2017-05-14] MEDS ORDERED: FENOFIBRATE 145 MG TAB PO SCH (09:00)
[2017-05-14] MEDS ORDERED: FOLIC ACID 1 MG TAB PO SCH (09:00)
[2017-05-14] MEDS ORDERED: CHOLECALCIFEROL 1,000 UNIT TAB PO SCH (09:00)
--- NOTE | 2017-05-14 09:11 | CONS ---
Date/Time of Note Date/Time of Note DATE: 05/14/17 TIME: 09:02 Assessment/Plan Assessment/Plan Chief Complaint/Hosp Course 1) acute anterior wall STEMI s/p PCI of proximal LAD with PRAFUL x 1 2) Ischemic cardiomyopathy- echo with overall normal LV function, no wma noted 3) CAD- s/p proximal LAD PCI, mLAD in 2011. Has OM2 occlusion which is likely chronic, wire could not cross during AMI PCI. also has occluded rPDA branch which fills via collaterals. 4) Smoking- d/w pt, recommend smoking cessation 5) Hypokalemia- unclear etiology- replaced, watch k/mag closely 6) ischemic VT- s/p shock x 5 by EMS per report. cont tele monitoring and electrolyte supplementation. given AMI, would not recommend ICD at this time. but would recommend electrolyte supplements and f/u monitoring. Recc: cont asa 81 mg daily cont ticagelor 90mg po bid cont atorvastatin cont lisinopril change metoprolol to 37.5mg po bid cont mag ox 400mg daily and KCL 20meq daily at home at discharge referral to cardiac rehab as outpt close outpt fu ok to d/c home Problems: Consultation Date/Type/Reason Admit Date/Time May 12, 2017 at 17:46 Initial Consult Date 05/12/17 Type of Consultation: Cardiology Reason for Consultation STEMI Referring Provider: JUDY STROUD MD 24 HR Interval Summary Free Text/Dictation no acute events. patient feeling well. reports no cp/sob. pt refused tele overnight, vitals given it was not letting him sleep. tolerating po. tele reviewed: had 2 sec run of NSVT followed by IVR for 2 sec. pt denies any dizziness, lightheadedness with event, no n/v/syncope. Constitutional: no complaints Detailed Summary Eyes: no complaints ENT: no complaints Respiratory: no complaints Cardiovascular: no complaints Gastrointestinal: no complaints Exam/Review of Systems Vital Signs Vitals Vital Signs Date Time Temp Pulse Resp B/P Pulse Ox O2 Delivery O2 Flow Rate FiO2 05/14/17 04:00 0 05/14/17 02:00 19 94 05/14/17 01:00 133/68 Room Air 05/14/17 00:00 98.0 05/13/17 04:00 3.0 Intake and Output 05/13/17 05/13/17 05/14/17 15:00 23:00 07:00 Intake Total 60 ml 450 ml 60 ml Output Total 350 ml 50 ml Balance -290 ml 400 ml 60 ml Exam Constitutional: alert, oriented, well developed Psych: nl mood/affect, no complaints Head: atraumatic, normocephalic Eyes: EOMI, nl conjunctiva ENMT: nl external ears & nose, nl lips & teeth, nl nasal mucosa & septum Neck: non-tender, supple, No jvd Respiratory: clear to auscultation, normal air movement Cardiovascular: nl pulses, regular rate and rhythm, No bruits, No diastolic murmur, No edema, No systolic murmur Gastrointestinal: non-tender, soft Musculoskeletal: nl extremities to inspection, nl gait and stance Extremities: normal pulses, other (2+ r radial, small amount of bruising no hematoma) Neurological: CHEMISTRY INSTRUCTOR II-XII intact, nl mental status Skin: nl turgor Results Result Diagram: 05/14/17 0613 05/14/17 0613 Results 24 hrs Laboratory Tests Test 05/14/17 06:13 White Blood Count 9.6 # Red Blood Count 4.42 L Hemoglobin 13.2 L Hematocrit 40.1 L Mean Corpuscular Volume 90.7 Mean Corpuscular Hemoglobin 29.9 Mean Corpuscular Hemoglobin Concent 32.9 Red Cell Distribution Width 13.1 Platelet Count 228 Mean Platelet Volume 10.6 H Neutrophils % 65.8 Lymphocytes % 23.5 Monocytes % 8.2 Eosinophils % 1.6 Basophils % 0.5 Nucleated Red Blood Cells % 0.0 Neutrophils # 6.3 Lymphocytes # 2.3 Monocytes # 0.8 Eosinophils # 0.2 Basophils # 0.1 Nucleated Red Blood Cells # 0.0 Sodium Level 140 Potassium Level 4.0 Chloride Level 104 Carbon Dioxide Level 26 Anion Gap 14 Blood Urea Nitrogen 25 H Creatinine 1.28 H Glucose Level 101 Calcium Level 9.0 Phosphorus Level 2.8 Magnesium Level 1.9 Albumin 3.8 Medications Medications Current Medications Aspirin (Halfprin) 81 mg DAILY PO Last administered on 05/13/17 08:09; Admin Dose 81 MG; Start 05/13/17 at 09:00 Ticagrelor (Brilinta) 90 mg BID PO Last administered on 05/13/17 20:43; Admin Dose 90 MG; Start 05/12/17 at 21:00 Metoprolol Tartrate (Lopressor) 25 mg BID PO Last administered on 05/13/17 20 :45; Admin Dose 25 MG; Start 05/12/17 at 21:00 Lisinopril (Zestril) 10 mg DAILY PO Last administered on 05/13/17 08:09; Admin Dose 10 MG; Start 05/12/17 at 17:30 Acetaminophen (Tylenol Tab) 650 mg Q4H PRN PO NON-CARDIAC PAIN LEVEL 1-3 Last administered on 05/12/17 20:42; Admin Dose 650 MG; Start 05/12/17 at 17:30 Oxycodone/ Acetaminophen (Percocet (5/ 325)) 1 tab Q4H PRN PO REPORTED NON- CARDIAC PAIN 4-7 Last administered on 05/12/17 18:39; Admin Dose 1 TAB; Start 05/12/17 at 17:30 Al Hydrox/Mg Hydrox/Simethicone (Mag-Al Plus) 30 ml Q4H PRN PO GASTROINTESTINAL UPSET Last administered on 05/12/17 20:58; Admin Dose 30 ML; Start 05/12/17 at 17:30 Ondansetron HCl (Zofran Inj) 4 mg Q4H PRN IV NAUSEA AND/OR VOMITING Last administered on 05/12/17 22:15; Admin Dose 4 MG; Start 05/12/17 at 17:30 Atorvastatin Calcium (Lipitor) 80 mg DAILY@21 PO Last administered on 20:44; Admin Dose 80 MG; Start 05/12/17 at 21:00 Ondansetron HCl (Zofran Inj) 4 mg Q6H PRN IV NAUSEA AND/OR VOMITING; Start at 18:30 Nitroglycerin (Nitroglycerin (Sl Tab) 0.4 Mg) 1 tab Q5M PRN SL CHEST PAIN; Start 05/12/17 at 18:30 Acetaminophen (Tylenol Liquid) 650 mg Q6H PRN PO PAIN LEVEL 1-3 OR FEVER; Start 05/12/17 at 18:30 Morphine Sulfate (morphine) 2 mg Q4H PRN IV PAIN LEVEL 7-10; Start 05/12/17 at 18:30 Docusate Sodium (Colace) 100 mg Q12H PRN PO CONSTIPATION; Start 11/14/17 at 18 :30 Magnesium Hydroxide (Milk Of Mag) 30 ml DAILY PRN PO CONSTIPATION; Start 05/12 at 18:30 Pantoprazole (Protonix Tab) 40 mg DAILY@06 PO Last administered on 05/14/17 06:13; Admin Dose 40 MG; Start 05/13/17 at 06:00 Cyclobenzaprine HCl (Flexeril) 5 mg QHS PO Last administered on 05/13/17 20: 44; Admin Dose 5 MG; Start 05/13/17 at 21:00 Folic Acid (Folic Acid) 1 mg DAILY PO ; Start 05/14/17 at 09:00 Gabapentin (Neurontin) 200 mg QHS PO Last administered on 05/13/17 20:44; Admin Dose 200 MG; Start 05/13/17 at 21:00 Cholecalciferol (Vitamin D) 1,000 unit DAILY PO ; Start 05/14/17 at 09:00 Fenofibrate (Tricor) 145 mg DAILY PO ; Start 05/14/17 at 09:00 Procedures Procedures Echo reviewed, normal LVEF cxr report reviewed MARISSA YI May 14, 2017 09:11
[2017-05-14] MEDS ORDERED: METOPROLOL 25 MG TAB PO SCH (09:30)
[2017-05-14] MEDS ORDERED: MAGNESIUM OXIDE 400 MG TAB PO SCH (09:30)
[2017-05-14] MEDS ORDERED: POTASSIUM CHLORIDE (SR) 20 MEQ TAB PO SCH (09:30)
[2017-05-14] MEDS ORDERED: TICA90TA PO (09:33)
[2017-05-14] MEDS ORDERED: POTA-57 PO (09:33)
[2017-05-14] MEDS ORDERED: METO-448 PO (09:33)
[2017-05-14] MEDS ORDERED: NIT4 SL (09:33)
[2017-05-14] MEDS ORDERED: LISI10TA2 PO (09:33)
[2017-05-14] MEDS: ASPIRIN (EC) 81 MG TAB PO SCH (09:36)
[2017-05-14] MEDS: LISINOPRIL 10 MG TAB PO SCH (09:36)
[2017-05-14] MEDS: TICAGRELOR 90 MG TABLET PO SCH (09:42)
--- NOTE | 2017-05-14 09:42 | PDOCDIS ---
Discharge Instructions DIAGNOSIS Discharge Diagnosis 1. Acute anterior wall STEMI s/p PCI of proximal LAD with PRAFUL x 1 2. c/o CAD with PCI in 2011 3. Electrolyte abnormalities- improved 4. Anemia- resolving 5. Ischemic Vtach CONDITION Patient Condition: Good HOME CARE INSTRUCTIONS: Diet Instructions: Low Fat /CholesterolSpecial Diet: Cardiac Diet ACTIVITY: Activity Restrictions: Slowly Increase Activity FOLLOW UP/APPOINTMENTS Follow-up Plan 1. Follow up with Research Subject in 1 week 2. Follow up with your Primary care physician in 1 week 3. You are being set up for Outpatient Cardiac Rehab 4. Continue following medications: Aspirin 81mg daily, Brilinta 90mg twice a day , Lipitor 80mg daily, Lisinopril 10mg daily, Lopressor 37.5mg twice daily, KCl 20mg daily, Magnesium 500mg daily JAGRUTI ZAMAN MD May 14, 2017 09:42
--- NOTE | 2017-05-14 22:24 | DS ---
Date/Time of Note Date/Time of Note DATE: 05/14/17 TIME: 22:16 Discharge Summary Admission/Discharge Info Admit Date/Time May 12, 2017 at 17:46 Discharge Date/Time May 14, 2017 at 11:25 Discharge Diagnosis 1. Acute anterior wall STEMI s/p PCI of proximal LAD with PRAFUL x 1 2. c/o CAD with PCI in 2011 3. Electrolyte abnormalities- improved 4. Anemia- resolving 5. Ischemic Vtach Patient Condition: Good Consults Cardiology Procedures PCI with stent proximal LAD Hx of Present Illness 72 yo M with PMH SC in 2011 presented to ED after complaining of chest pain and shortness of breath that occurred hours prior to arrival. EMS found him in VTach and shocked him five times back into normal rhythm. Patient remembers event and denies any LOC. Patient was started on amiodarone. EKG performed showed peaked T waves and ST elevation in anterior leads. Patient was emergently taken to dairy lab technician and PCI was performed. Stent placed in proximal LAD secondary to severe lesion. LV gram showed LVEF of 35-40%. Patient currently in ICU and complaining of moderate chest pain with shortness of breath but states is significantly better since arrival. Admits to dizziness but denies any LOC, nausea, vomiting, abdominal issues, constipation or diarrhea. Patient states he was last seen by his Gate Attendant 4 months ago and was told everything was okay. Hospital Course Patient was admitted to ICU for close monitoring after experiencing acute anterior wall STEMI s/p PCI of proximal LAD with PRAFUL x 1. Patient had a run of 15 beats of Vtach and monitoring was continued. Patient had repeat ECHO performed given diminished EF on LV gram and improvement from 35-40% to 55%. Patient had electrolyte imbalance of potassium, magnesium and calcium that improved after replacement. Patient did not require ICD for VT at this time but did need close monitoring and electrolyte replacement. Patient remained stable and was discharged home in good condition after cleared by Cardiology. He was advised to continue smoking cessation and continue medications. Home Meds Active Scripts Potassium Chloride* (Klor-Con*) 20 Meq Tabsr, 20 MEQ PO DAILY for 30 Days, #30 TAB Prov:JAGRUTI ZAMAN MD 05/14/17 Nitroglycerin* (Nitrostat*) 0.4 Mg Tab.subl, 1 TAB SL Q5M Y for CHEST PAIN for 30 Days, #90 TAB Prov:JAGRUTI ZAMAN MD 05/14/17 Metoprolol Tartrate* (Lopressor*) 25 Mg Tab, 37.5 MG PO BID for 30 Days, #60 TAB Prov:JAGRUTI ZAMAN MD 05/14/17 Lisinopril* (Lisinopril*) 10 Mg Tablet, 10 MG PO DAILY for 30 Days, #30 TAB Prov:JAGRUTI ZAAMN MD 05/14/17 Ticagrelor* (Brilinta*) 90 Mg Tablet, 90 MG PO BID for 30 Days, #60 TAB Prov:JAGRUTI ZAMAN MD 05/14/17 Reported Medications Magnesium Oxide* (Mag-Oxide*) 400 Mg Tablet, 400 MG PO DAILY, TAB 05/13/17 Folic Acid* (Folic Acid*) 1 Mg Tablet, 1 MG PO DAILY, TAB 05/13/17 Gabapentin* (Gabapentin*) 100 Mg Capsule, 200 MG PO QHS, #180 CAP 05/13/17 Cyclobenzaprine Hcl* (Cyclobenzaprine Hcl*) 5 Mg Tablet, 5 MG PO QHS, #60 TAB 05/13/17 Cyanocobalamin/FA/Pyridoxine (Virt-Demarcus Tablet) 1 Each Tablet, 1 EACH PO, TAB 05/13/17 Atorvastatin* (Atorvastatin*) 80 Mg Tablet, 80 MG PO QHS, #30 TAB 05/13/17 Fenofibric Acid (Choline) (Fenofibric Acid) 135 Mg Capsule.dr, 135 MG PO DAILY, TAB 05/13/17 Aspirin* (Aspirin* Chew) 81 Mg Tab.chew, 81 MG PO DAILY, TAB.CHEW 05/13/17 Esomeprazole Mag Trihydrate (Nexium) 40 Mg Capsule.dr, 40 MG PO DAILY, #30 CAP 05/13/17 Ergocalciferol (Vitamin D) 400 Unit Capsule, 1000 UNIT PO DAILY, CAP 05/13/17 Follow-up Plan 1. Follow up with Gate Attendant in 1 week 2. Follow up with your Primary care physician in 1 week 3. You are being set up for Outpatient Cardiac Rehab 4. Continue following medications: Aspirin 81mg daily, Brilinta 90mg twice a day , Lipitor 80mg daily, Lisinopril 10mg daily, Lopressor 37.5mg twice daily, KCl 20mg daily, Magnesium 500mg daily Primary Care Provider Care Physician No Primary Time spent on discharge: > 30 minutes Pending Labs Laboratory Tests Test 05/14/17 06:13 White Blood Count 9.610^3/ul (4.8-10.8) Red Blood Count 4.4210^6/ul (4.70-6.10) Hemoglobin 13.2g/dl (14.0-18.0) Hematocrit 40.1% (42.0-52.0) Mean Corpuscular Volume 90.7fl (82.0-101.0) Mean Corpuscular Hemoglobin 29.9pg (29.0-33.0) Mean Corpuscular Hemoglobin Concent 32.9g/dl (32.0-37.0) Red Cell Distribution Width 13.1% (11.5-14.5) Platelet Count 67967^3/UL (140-415) Mean Platelet Volume 10.6fl (7.4-10.4) Neutrophils % 65.8% (39.0-77.0) Lymphocytes % 23.5% (15.0-51.0) Monocytes % 8.2% (0.0-11.0) Eosinophils % 1.6% (0.0-7.0) Basophils % 0.5% (0.0-2.0) Nucleated Red Blood Cells % 0.0/100WBC (0.0-0.0) Neutrophils # 6.310^3/ul (1.6-7.5) Lymphocytes # 2.310^3/ul (0.8-2.9) Monocytes # 0.810^3/ul (0.3-0.9) Eosinophils # 0.210^3/ul (0.0-0.5) Basophils # 0.110^3/ul (0.0-0.1) Nucleated Red Blood Cells # 0.010^3/ul (0.0-0.0) Sodium Level 140mmol/L (135-144) Potassium Level 4.0mmol/L (3.5-5.1) Chloride Level 104mmol/L (97-110) Carbon Dioxide Level 26mmol/L (21-31) Anion Gap 14 (8-16) Blood Urea Nitrogen 25mg/dl (7-20) Creatinine 1.28mg/dl (0.61-1.24) Glucose Level 101mg/dl (70-220) Calcium Level 9.0mg/dl (8.4-10.2) Phosphorus Level 2.8mg/dl (2.5-4.9) Magnesium Level 1.9mg/dl (1.7-2.5) Albumin 3.8g/dl (3.3-4.9) JAGRUTI ZAMAN MD May 14, 2017 22:24
--- NOTE | 2017-05-15 13:22 | RADRPT ---
Vent Rate: 58 bpm RR Interval: 0 msec GA Interval: 148 msec QRS Duration: 92 msec QT Interval: 376 msec QTC Interval: 369 msec P-R-T [place]: 33 - 38 - 2 degrees Sinus bradycardia Septal infarct , age undetermined Abnormal ECG Electronically Signed By: Iron Munguia [id number]
--- NOTE | 2017-05-15 13:22 | RADRPT ---
Vent Rate: 68 bpm RR Interval: 0 msec [place] Interval: 166 msec QRS Duration: 100 msec QT Interval: 412 msec QTC Interval: 438 msec P-R-T [place]: 60 - 3 - 9 degrees Normal sinus rhythm Normal ECG Electronically Signed By: Iron Munguia [id number]
[2017-05-15 19:46] LABS: PTH CALCIUM 9.4 mg/dL (8.6-10.3)
== END 2017-05-14 11:25 | disposition home or self-care (01) | DRG 247 ==
LOC: E/R 15:35 → ICU 17:46
PROVIDERS: ADMIT Internal Medicine; ATTEND Internal Medicine
PROC: 027034Z Dilation of Coronary Artery, One Artery with Drug-eluting Intraluminal Device, Percutaneous Approach (ICD-10-PCS; principal; 2017-05-12 15:45)
PROC: B2101ZZ Fluoroscopy of Single Coronary Artery using Low Osmolar Contrast (ICD-10-PCS; 2017-05-12 15:45)
DX: I21.09 ST elevation (STEMI) myocardial infarction involving other coronary artery of anterior wall (principal); I47.2 Ventricular tachycardia; E87.6 Hypokalemia; E83.51 Hypocalcemia; F17.200 Nicotine dependence, unspecified, uncomplicated; D64.9 Anemia, unspecified; G89.18 Other acute postprocedural pain; I25.10 Atherosclerotic heart disease of native coronary artery without angina pectoris; I25.5 Ischemic cardiomyopathy; Z95.5 Presence of coronary angioplasty implant and graft
CPT/HCPCS: 36415; 71010; 80048; 80061; 80069; 82306; 82330; 82550; 82553; 82652; 83540; 83735; 83970; 84484; 85025; 85610; 85730; 87081; 93005; 93306; 93458; 96374; 96375; 96376; C1725; C1874; C1887; C1894; C9600; J0282; J1644; J2250; J2405; J3010; J3475; J3480; J7060; Q9967